=== PATIENT | male | born 1945 | race Caucasian/White ===

== ENCOUNTER 2017-11-16 00:30 | Day surgery (SDC) | payer MEDICARE, OTHER ==
[~2017-11-16] VITALS: Ht 172.7 cm; Wt 66.7 kg
[~2017-11-16 00:30] MED LIST: CARB-82 PO; CHOL10005 PO; [UNRECOGNIZED DRUG - CODE] PO
[2017-11-16] MEDS ORDERED: LIDOCAINE MPF 1% 5 ML VIAL ONE (07:08)
[2017-11-16] MEDS ORDERED: PROPOFOL EMUL(*) 10MG/ML 20 ML 40 ML ONE (07:08)
[2017-11-16 10:30] VITALS: BP 129/74
[2017-11-16] MEDS ORDERED: NORMOSOL R SOLN(*) 1000 ML BAG 1,000 ML IV PRN (12:00)
[2017-11-16] MEDS ORDERED: MIDAZOLAM 2 MG/2 ML VIAL IVP ONE (12:00)
[2017-11-16] MEDS ORDERED: LIDOCAINE/SOD BICARB 8.4% SYR ID ONE (12:00)
[2017-11-16 13:20] VITALS: BP 86/54
[2017-11-16 13:27] VITALS: BP 95/66
[2017-11-16 13:50] VITALS: BP 105/73
[2017-11-16 14:02] VITALS: BP 109/75
[2017-11-16 14:04] VITALS: BP 128/83
== END 2017-11-16 14:22 | disposition home or self-care (01) ==
LOC: OR 00:30
PROVIDERS: ATTEND Family Medicine
DX: Z12.11 Encounter for screening for malignant neoplasm of colon (principal)
CPT/HCPCS: 00812; G0121; J2001; J2704